=== PATIENT | male | born 2000 | race African-American/Black ===

== ENCOUNTER 2025-02-22 17:19 | Emergency (ER) | payer SELFPAY ==
[2025-02-22 17:19] VITALS: O2SAT 100
[2025-02-22 17:20] VITALS: BP 136/87; PULSE 74; RESP 18; TEMP 37.1; O2SAT 99; BMI 49.3
--- NOTE | 2025-02-22 17:37 | ED.RN ---
EMS SPOKE WITH FAMILY REGARDING CARE GIVEN TO THEM BY THE CREW. AFTER EMS A GENTLEMAN CAME THE THE DESK ASKING HOW IS HE DOING. ATTEMPTED TO EXPLAIN THAT THE EMS CREW SPOKE WITH THEM IN THE ROOM PRIOR TO THE CREW LEAVING AND EXPLAINED THAT HE HAS NOT BEEN HERE LONG AND A HAS NOT SEEN HIM. AFTER THIS FAMILY MEMBER RETURNED TO THE ROOM, THE CAME OUT ASKING THE SAME QUESTIONS AND IF HE COULD HAVE SOMETHING TO EAT OR DRINK.
--- NOTE | 2025-02-22 17:51 | EX.ED.DYSGE1 ---
HPI History of Present Illness Chief Complaint: Asthma Informant: patient, family and EMS Narrative Narrative: Patient is a 24-year-old male with a history of asthma presenting to the ED with sudden onset dizziness. Patient is accompanied by a family who is supplementing history. - Reports sudden onset of dizziness and chest discomfort while sitting on a bench and looking at his phone; symptoms began when he looked up from the phone. - Describes dizziness as a spinning sensation, stating, When I open my eyes, it feels like I'm doing a 360. Associate with nausea. - Associated symptoms include facial pain when talking and a vibrating sensation throughout his body, similar to a limb falling asleep, but intensified. Denies any lateralizing neurologic symptoms today - Denies any earache or tinnitus. - Denies any recent asthma exacerbation, stating, I wasn't breathing funny or nothing. - Denies any recent emesis, stating, I don't vomit. Ever since I had surgery. -Had a cold couple weeks ago but that is better. 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 - Denies any other medical problems besides asthma, which he describes as usually well-controlled with a light wheeze. - Expresses discomfort when not carrying an inhaler, stating, I don't like it when I don't have any inhaler in my pocket. PFSH PFSH Home Medications ?Medication ?Instructions ?Recorded ?Last Taken ?Type diazepam 5 mg tablet (Valium) 5 mg PO BID PRN vertigo 3 days #6 02/22/25 Unknown Rx tabs meclizine 25 mg tablet 25 mg PO TID PRN dizziness #20 tabs 02/22/25 Unknown Rx ondansetron 8 mg disintegrating 8 mg PO Q8H PRN nausea and 02/22/25 Unknown Rx tablet vomiting #15 tabs Allergy/AdvReac Type Severity Reaction Status Date / Time No Known Allergies Allergy Verified 02/22/25 17:22 Social History Smoking Status: Never smoker ROS ROS ED Constitutional Constitutional ED: Denies chills or fever(s) Eyes Eyes: Denies change in vision, diplopia or discharge from eye(s) ENT ENT ED: Reports as per HPI, disequillibrium and vertigo; Denies discharge from eye(s), ear pain, rhinorrhea, sore throat or tinnitus Cardiovascular Cardiovascular: Denies chest pain or palpitations Respiratory/Chest Respiratory/Chest: Denies cough or dyspnea Gastrointestinal Gastrointestinal: Denies abdominal pain, diarrhea, nausea or vomiting Genitourinary Genitourinary ED: Denies dysuria or hematuria Musculoskeletal Musculoskeletal: Denies back pain or neck pain Integumentary Denies abscess or rash Neurologic Neurologic: Denies headache(s), paresthesias or weakness Psychiatric Psychiatric: Denies suicidal thoughts EXAM Physical Exam Const Vital Signs: 02/22/25 17:19 02/22/25 17:20 02/22/25 18:30 Temperature 98.7 F Temperature Source Oral Pulse Rate 74 62 Respiratory Rate 18 18 Respiratory Effort Normal Respiratory Depth Normal Respiratory Pattern Normal Blood Pressure 136/87 H 132/70 H Blood Pressure Mean 103 90 Pulse Ox 99 100 Oxygen Delivery Method Room Air Room Air Room Air Positive well nourished and well developed General Appearance ED: well developed and NAD HEENT Reports moist mucous membranes normocephalic and atraumatic Eyes PERRL and EOMs intact bilaterally Eyes Narrative: None fatigable horizontal nystagmus to the right. Abnormal jolt test. No vertical nystagmus. No direction changing nystagmus. Neck full ROM and supple Resp normal respiratory effort and clear to auscultation bilaterally Cardio regular rate, regular rhythm and no murmurs GI non-tender and non-distended Auscultation: normoactive bowel sounds Palpation: soft Back/Spine no CVA tenderness General Back: other FROM Extremity normal to inspection General Extremety ED: Negative for edema, pulses abnormal or tenderness General Extremity: Negative for edema or pulses abnormal Neuro oriented x3, CN's II-XII intact bilaterally and no sensory deficits noted Neuro Narrative: Normal [id number] nutrition bilaterally. Normal speech no aphasia or dysarthria. Sensorium / Orientation: awake and alert Motor Exam: strength 5/5 throughout Psych Mood & Affect: anxious Skin no rashes or lesions noted and no wounds MDM MDM MDM Narrative Medical decision making narrative: Assessment: The patient is a 24-year-old male with PMH of asthma presenting for sudden-onset severe vertigo with nausea, facial discomfort, and transient brief chest tightness while sitting and looking up from his phone. Exam shows active horizontal nystagmus to the right, abnormal Jolt test, and vitals with BP 117 and otherwise normal. Given recent viral URI and classic peripheral findings, labyrinthine vestibulitis is most likely; chest discomfort is felt to be non-cardiac. After discussing with the patient after he was feeling better, he confirms that he thinks he might have been hyperventilating earlier because he was really upset with his interactions with the paramedics while he was feeling very poorly. This would be consistent with the facial discomfort he was having with tingling/paresthesias bilaterally as well as carpal spasms, all of which have resolved with time and the patient calming down and feeling better. Plan: - Administered Valium, Zofran, and meclizine in ED with good symptomatic improvement - Prescribed medications for peripheral vertigo on discharge - Provided written supportive care instructions and work note - Advised follow-up with otolaryngology if symptoms persist >= week - Discharged home in improved and ambulatory condition Reevaluations: - Reexam after medications: no longer hyperventilating, nystagmus resolved, ambulates with only mild vertigo Diagnoses: Acute peripheral vertigo suspect labyrinthine vestibulitis Discharge Plan Triage Chief Complaint: Asthma ED Provider: Live Juan Dx/Rx/DC Orders Clinical Impression: Peripheral vertigo Instructions: Vertigo Inner Ear Problems, Labyrinthitis Prescriptions: New ondansetron 8 mg tablet,disintegrating 8 mg PO Q8H PRN (Reason: nausea and vomiting) Qty: 15 0RF meclizine 25 mg tablet 25 mg PO TID PRN (Reason: dizziness) Qty: 20 0RF diazepam [Valium] 5 mg tablet 5 mg PO BID PRN (Reason: vertigo) 3 Days Qty: 6 0RF Primary Care Provider: Care Physician,No Primary Referrals: Alexsander Antunez MD [Med Staff - Active Staff, Ear Nose Throat (ENT)] - 1 Week if not improving Activity Restrictions/Additional Instructions: - Take the medications prescribed for your vertigo?Valium, meclizine, and Zofran?as directed to help relieve dizziness and nausea. - Keep the work note provided and give it to your employer for Monday if you need time off. - If your dizziness or related symptoms continue for more than one week, schedule an appointment with an ear, nose, and throat (ENT) specialist for further evaluation. Print Language: Kazakh Disposition Disposition: Home, Self Care
[2025-02-22 18:30] VITALS: BP 132/70; PULSE 62; RESP 18; O2SAT 100
[2025-02-22 19:55] VITALS: BP 121/65; PULSE 65; RESP 20; TEMP 36.6; O2SAT 99
== END 2025-02-22 19:55 | disposition home or self-care (01) ==
LOC: ED 18:11
PROVIDERS: Emergency Provider Emergency Medicine; Visit Provider Emergency Medicine
DX: H81.399 Other peripheral vertigo, unspecified ear (principal); R07.89 Other chest pain; J45.909 Unspecified asthma, uncomplicated
CPT/HCPCS: 99285